=== PATIENT | female | born 1990 | race Caucasian/White ===

== ENCOUNTER 2018-05-05 11:22 | Emergency (ER) | payer OTHER ==
--- NOTE | 2018-05-05 12:38 | Diagnostic Imaging Report ---
Cervical spine (4 views) HISTORY: Pain There is straightening of the cervical lordosis. Degenerative spur formation noted about the inferior endplate of C5. Minimal narrowing of the C45 and C3-4 disc spaces. No acute abnormalities. No fractures. The prevertebral soft tissues appear normal. IMPRESSION: 1. No acute abnormalities 2. Minimal degenerative changes 3. Straightening of the cervical lordosis that may be associated with spasm.
--- NOTE | 2018-05-20 07:03 | ER Physician Documentation ---
DATE OF SERVICE: 05/05/2018 CHIEF COMPLAINT: Neck pain. HISTORY OF PRESENT ILLNESS: The patient presents to the Emergency Room with a history of neck pain with radiation to her right shoulder that she has had for 5 days. No history of trauma. No other remarkable symptoms. She denies any numbness or tingling, any problems walking. She denies any problems with respect to lack of bowel or bladder continence. PAST MEDICAL HISTORY: Unremarkable. PAST SURGICAL HISTORY: Unremarkable. REVIEW OF SYSTEMS: Positive for neck pain. Review of systems is negative for fevers, chills, nausea, vomiting, diarrhea, or constipation. PHYSICAL EXAMINATION: GENERAL: A well-developed, well-nourished female, in no apparent distress. LUNGS: Clear to auscultation bilaterally. COR: Regular rate and rhythm. EXTREMITIES: She does have some muscle spasms present on the right paracervical area. She does not have any weakness in either arm or leg. Her motor strength is 5/5. She has no signs of meningismus. NEUROLOGICAL: She has no paresthesias. Negative Tinel's throughout. She has full range of motion. Negative straight leg raise tests bilaterally. I went ahead and ordered a C-spine on her and IT revealed no acute abnormalities , minimal degenerative changes and straightening of the cervical lordosis that may be associated with spasm. She also received a shot of Solu-Medrol 125 mg IM and Toradol 60 mg IM after we verified that she was not . She felt much better after receiving the injections. I offered her a cervical collar as well if she wanted one, she refused it. I also gave her a prescription for Flexeril after running CURES report on her which was negative. ASSESSMENT AND PLAN: Neck muscle spasm without any other abnormalities, improved with treatment in the ER. She is to follow up with her primary care physician if things worsen or continue. I also gave her CD with the images on it to follow up with her primary care doctor. JOB# [id number]
== END 2018-05-05 12:45 | disposition home or self-care (01) ==
LOC: ER 11:22
DX: M54.2 Cervicalgia (principal)
CPT/HCPCS: 99284; 96372 ×2; 72040; 81025; J1885; J2930; Z7502